=== PATIENT | male | born 1955 | race Caucasian/White ===

== ENCOUNTER 2017-05-24 19:14 | Emergency (ER) | payer BC ==
[2017-05-24 19:21] VITALS: BP 108/65
--- NOTE | 2017-05-24 19:29 | UC ---
Hip/Pelvis Pain - HPI Summary HPI Summary: 62 year old male presents with complains of left rib, elbow, and hip pain after a 5 foot fall. - History Of Current Complaint Chief Complaint: UCTrauma Stated Complaint: HIP,RIBS,ELBOW INJURIES FROM FALL Time Seen by Provider: 05/24/17 19:25 Hx Obtained From: Patient Onset/Duration: Sudden Onset Severity Initially: Moderate Severity Currently: Moderate Pain Scale Used: 0-10 Numeric - 8 - Allergies/Home Medications Allergies/Adverse Reactions: Allergies Allergy/AdvReac Type Severity Reaction Status Date / Time Meperidine [From Demerol HCl] AdvReac Vomiting Verified 05/24/17 19:22 NARCOTICS AdvReac Severe Vomiting Uncoded 05/24/17 19:22 PMH/Surg Hx/FS Hx/Imm Hx Previously Healthy: Yes - Surgical History Surgical History: Yes Surgery Procedure, Year, and Place: hernia repair - Family History Known Family History: Positive: None - Social History Alcohol Use: None Substance Use Type: None Smoking Status (MU): Never Smoked Tobacco Review of Systems Constitutional: Negative Skin: Negative Eyes: Negative ENT: Negative Respiratory: Negative Cardiovascular: Negative Gastrointestinal: Negative Genitourinary: Negative Motor: Negative Neurovascular: Negative Musculoskeletal: Other: - left hip pain left elbow pain left rib pain Neurological: Negative Psychological: Negative All Other Systems Reviewed And Are Negative: Yes Physical Exam Triage Information Reviewed: Yes Vital Signs: Initial Vital Signs Temp 36.8 C 05/24/17 19:17 Pulse 61 05/24/17 19:17 Resp 16 05/24/17 19:17 BP 108/65 05/24/17 19:17 Pulse Ox 98 05/24/17 19:17 Vital Signs Reviewed: Yes Eye Exam: Normal ENT Exam: Normal Dental Exam: Normal Neck exam: Normal Neck: Positive: 1 Respiratory Exam: Normal Cardiovascular Exam: Normal Abdominal Exam: Normal Musculoskeletal: Positive: Strength Limited @, ROM Limited @, Other: - left rib , elbow and hip pain Neurological Exam: Normal Psychological Exam: Normal Skin Exam: Normal Hip Injury Course/Dx - Differential Dx/Diagnosis Provider Diagnoses: left rib, elbow and hip sprain/contusion Discharge - Discharge Plan Condition: Stable Disposition: HOME Prescriptions: Acetaminop/Codeine 30 MG TAB* [Tylenol/Codeine 30 MG TAB*] 1 tab PO Q8H PRN #9 tab MDD 3 PRN Reason: Pain Meloxicam [Mobic] 7.5 mg PO BID PC #30 tab Methocarbamol TAB* [Robaxin 500 MG TAB*] 500 mg PO TID PRN #30 tab PRN Reason: Spasms - Back Patient Education Materials: Muscle Spasm (ED) Referrals: Sasha Bruno MD [Medical Doctor] - Ramiro Prado MD [Primary Care Provider] -
--- NOTE | 2017-05-24 20:10 | RAD ---
INDICATION: Left hip injury. Fall. COMPARISON: None TECHNIQUE: An AP view of the pelvis and AP views of the hip in neutral and abducted position were obtained FINDINGS: Bones: There are no acute bony findings. Joint spaces: The hips articulate normally. The joint spaces are preserved. SI joints/symphysis: The SI joints and symphysis are intact. Other: None IMPRESSION: NEGATIVE EXAMINATION.
--- NOTE | 2017-05-24 20:11 | RAD ---
INDICATION: Left rib injury. Fall. COMPARISON: None TECHNIQUE: Multiple views of the ribs were obtained. FINDINGS: Bones: There is no evidence of acute rib fracture. LUNGS: The lungs are clear. There is no pneumothorax. Pleural spaces: There is no evidence of hemothorax. Other: None IMPRESSION: NEGATIVE EXAMINATION.
--- NOTE | 2017-05-24 20:11 | RAD ---
INDICATION: Left elbow injury. Fall. COMPARISON: None TECHNIQUE: AP, lateral, and oblique views were obtained. FINDINGS: The bony structures, joint spaces, and soft tissues are normal for age. IMPRESSION: NEGATIVE EXAMINATION.
== END 2017-05-24 20:35 | disposition home or self-care (01) ==
LOC: UCEAST 19:14
DX: S23.41XA Sprain of ribs, initial encounter (principal); S53.402A Unspecified sprain of left elbow, initial encounter; S73.102A Unspecified sprain of left hip, initial encounter; S20.20XA Contusion of thorax, unspecified, initial encounter; S50.02XA Contusion of left elbow, initial encounter; S70.02XA Contusion of left hip, initial encounter; W17.89XA Other fall from one level to another, initial encounter; Y93.9 Activity, unspecified; Y92.9 Unspecified place or not applicable; Z88.5 Allergy status to narcotic agent
CPT/HCPCS: 99213; G0463

== ENCOUNTER 2019-07-16 09:56 | Emergency (ER) | payer MEDICARE, BC ==
[2019-07-16 10:06] VITALS: BP 99/64
--- NOTE | 2019-07-16 10:29 | UC ---
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 He has purulent nasal drainage and occasional productive cough. Comes because of persistence of symptoms with past response to antibiotics. He has a persistent frontal headache. - History of Current Complaint Chief Complaint: UCRespiratory Stated Complaint: SINUS ISSUES Time Seen by Provider: 07/16/19 10:22 Hx Obtained From: Patient Onset/Duration: Gradual Onset, Lasting Days - 7 Severity: Moderate Pain Intensity: 4 Cough: Productive Associated Signs & Symptoms: Positive: Sinus Discomfort - Epiglottits Risk Factors Epiglottis Risk Factors: Negative - Allergies/Home Medications Allergies/Adverse Reactions: Allergies Allergy/AdvReac Type Severity Reaction Status Date / Time meperidine [From Demerol] Allergy Vomiting Verified 07/16/19 10:03 midazolam [From Versed] Allergy Vomiting Verified 07/16/19 10:06 NARCOTICS AdvReac Severe Vomiting Uncoded 07/16/19 10:03 PMH/Surg Hx/FS Hx/Imm Hx Previously Healthy: Yes - Surgical History Surgical History: Yes Surgery Procedure, Year, and Place: hernia repair - Family History Known Family History: Positive: Cardiac Disease, Hypertension, Diabetes - Social History Occupation: Retired Lives: Alone Alcohol Use: None Substance Use Type: None Smoking Status (MU): Never Smoked Tobacco Review of Systems All Other Systems Reviewed And Are Negative: Yes Constitutional: Positive: Fatigue Skin: Positive: Negative Eyes: Positive: Negative ENT: Positive: Sore Throat, Ear Ache, Nasal Discharge, Sinus Congestion Respiratory: Positive: Cough. Negative: Shortness Of Breath Cardiovascular: Positive: Negative - blood pressures typically low Gastrointestinal: Positive: Negative Genitourinary: Positive: Negative Motor: Positive: Negative Neurovascular: Positive: Negative Musculoskeletal: Positive: Negative Neurological: Positive: Headache Psychological: Positive: Negative Is Patient Immunocompromised?: No Physical Exam Triage Information Reviewed: Yes Appearance: No Pain Distress, Ill-Appearing - looks mildly unwell Vital Signs: Initial Vital Signs Temp 98.5 F 07/16/19 10:04 Pulse 62 07/16/19 10:04 Resp 16 07/16/19 10:04 BP 99/64 07/16/19 10:04 Pulse Ox 100 07/16/19 10:04 Eyes: Positive: Conjunctiva Clear ENT: Positive: Pharyngeal erythema, TM bulging, TM dull Neck: Positive: Supple, Nontender, No Lymphadenopathy Respiratory: Positive: Lungs clear, Normal breath sounds, No respiratory distress Cardiovascular: Positive: RRR, No Murmur Musculoskeletal Exam: Normal Neurological Exam: Normal Neurological: Positive: Alert Psychological Exam: Normal Skin Exam: Normal Throat Pain/Nasal Course/Dx - Course Course Of Treatment: Discussed viral v bacterial illness. He has persistent symptoms and prefers to take an antibiotic at this time as this has resolved his symptoms in the past. - Differential Dx/Diagnosis Differential Diagnosis/HQI/PQRI: Laryngitis, Sinusitis, URI Provider Diagnosis: Sinusitis Discharge ED - Sign-Out/Discharge Documenting (check all that apply): Patient Departure All imaging exams completed and their final reports reviewed: No Studies - Discharge Plan Condition: Good Disposition: HOME Prescriptions: Amoxicillin PO (*) [Amoxicillin 875 MG (*)] 875 mg PO BID #20 tab Patient Education Materials: Sinusitis (ED) Referrals: Saúl Sahu MD [Primary Care Provider] - Additional Instructions: Please take the full course of antibiotics. Continue use of ibuprofen or acetaminophen for relief of headache. You can use nasal saline spray (available over the counter as [place] spray) AND/ OR Flonase (fluticasone 2 sprays to both nostrils once dialy) for relief of symptoms. Follow upf if you develop fever or shortness of breath. - Billing Disposition and Condition Condition: GOOD Disposition: Home
== END 2019-07-16 10:48 | disposition home or self-care (01) ==
LOC: UCEAST 09:56
DX: J32.9 Chronic sinusitis, unspecified (principal); R05 Cough; R53.83 Other fatigue; Z88.5 Allergy status to narcotic agent; Z88.8 Allergy status to other drugs, medicaments and biological substances
CPT/HCPCS: 99212; G0463

== ENCOUNTER 2019-09-13 12:38 | Day surgery (SDC) | payer MEDICARE, BC ==
[~2019-09-13 12:38] MED LIST: Lidocaine 1% w EPI 1:200,000* SDV 30 ML VIAL ONE; Sodium Bicarbonate 8.4% VIAL* 10 ML VIAL IV ONE
[2019-09-13] MEDS ORDERED: Bupivacaine 0.25% SDV* 30 ML ONE (13:17)
[2019-09-13 13:40] VITALS: BP 108/74
--- NOTE | 2019-09-14 00:43 | OP ---
DATE OF OPERATION: 09/13/19 [facility] DATE OF : 53 SURGEON: Surendra Bhardwaj MD [employer]ARGE [employer]IMAL VETERINARIAN: JACQUELINE Roberts ANESTHESIOLOGIST: None. ANESTHESIA: Local only with 1% buffered lidocaine with epinephrine. PRE-OP DIAGNOSIS: Left carpal tunnel syndrome. POST-OP DIAGNOSIS: Left carpal tunnel syndrome. OPERATIVE PROCEDURE: Left endoscopic carpal tunnel release. INDICATIONS: Mr. Monsivais has a carpal tunnel that is chronic; it is progressive. We talked about treatment options; he wanted to proceed. ESTIMATED BLOOD LOSS: 2 mL. COMPLICATIONS: None. FINDINGS: See above and below. DESCRIPTION OF PROCEDURE: Mr. Monsivais was seen in the preoperative holding area. The correct site, side, and procedures were identified. We came back to the operating room. The arm was prepped and draped in the usual fashion and a time-out was performed. The arm was exsanguinated with the Esmarch and the tourniquet inflated to 200 mmHg. I made a longitudinal incision in the proximal palm. I had already numbed up the operative site with 1% buffered lidocaine with epinephrine in the preop area. Dissection was carried down through the subcutaneous tissue. The mckeon fascia was incised. A transverse carpal ligament was released just off the radial aspect of hook of hamate. A Belén retractor was placed and the release was completed distally. I then came proximal and I released the subcutaneous tissue and retracted down ulnarly. I then released the distal antebrachial fascia with the tenotomy scissors to a level several centimeters proximal to the wrist flexion crease. At this point, everything was looking good. The decompression was complete. The wound was irrigated out. Skin was closed with 4-0 Prolene suture, soft dressing was applied and he was taken to the recovery room in stable condition. [id number]/[facility] #: [id number] [facility] MEDICAL CENTERBenjamin
== END 2019-09-13 13:45 | disposition home or self-care (01) ==
LOC: OREAST 12:38
PROVIDERS: ATTEND Orthopaedic Surgery Hand Surgery
DX: G56.02 Carpal tunnel syndrome, left upper limb (principal)
CPT/HCPCS: J2001; J3490